=== PATIENT | male | born 1985 | race Caucasian/White ===

== ENCOUNTER 2017-11-02 08:15 | Emergency (ER) | payer OTHER ==
[2017-11-02 08:20] VITALS: BP 116/73; PULSE 93; TEMP 99.1; BMI 31.9
[2017-11-02] MEDS ORDERED: IBUPROFEN 600 MG TABLET (FP) PO ONE ×2 (08:49→08:52)
--- NOTE | 2017-11-02 08:53 | PDOC ---
History of Present Illness - General Chief Complaint: Injury Stated Complaint: INJURY Time Seen by Provider: 11/02/17 08:28 History Source: Patient Exam Limitations: No Limitations - History of Present Illness Initial Comments: 11/02/17 08:50 slipped and fell in shower, landing onto left side- Occurred: reports: yesterday Severity: reports: moderate Pain Location: reports: chest Method of Injury: Yes: direct blow Loss of Consciousness: no loss of consciousness Associated Symptoms (Fall): chest pain Past History - Travel Traveled outside of the country in the last 30 days: No Close contact w/someone who was outside of country & ill: No - Past Medical History Allergies/Adverse Reactions: Allergies Allergy/AdvReac Type Severity Reaction Status Date / Time No Known Allergies Allergy Verified 11/02/17 08:19 Home Medications: Ambulatory Orders NK [No Known Home Medication] 11/02/17 COPD: No - Suicide/Smoking/Psychosocial Hx Smoking History: Current every day smoker Number of Cigarettes Smoked Daily: 4 Information on smoking cessation initiated: No Review of Systems - Review of Systems Able to Perform ROS?: Yes Is the patient limited Sinhala proficient: Yes Constitutional: Yes: Symptoms Reported, See HPI, Loss of Appetite, Malaise. No : Fever HEENTM: Yes: See HPI. No: Symptoms Reported Respiratory: Yes: Symptoms reported, See HPI. No: Cough (some difficulty with deep inspiration), Wheezing ABD/GI: Yes: See HPI. No: Symptoms Reported, Abdominal Distended Musculoskeletal: Yes: Symptoms Reported, See HPI Integumentary: Yes: See HPI. No: Symptoms Reported, Bruising, Erythema Neurological: No: Symptoms reported All Other Systems: Reviewed and Negative *Physical Exam - Vital Signs Last Vital Signs Temp Pulse Resp BP Pulse Ox 99.1 F 93 H 20 116/73 99 11/02/17 08:17 11/02/17 08:17 11/02/17 08:17 11/02/17 08:17 11/02/17 08:17 - Physical Exam General Appearance: Yes: Nourished, Appropriately Dressed, Apparent Distress, Mild Distress, Moderate Distress HEENT: positive: DEVANG, Normal ENT Inspection, Normal Voice, TMs Normal, Pharynx Normal Neck: positive: Supple. negative: Tender Respiratory/Chest: positive: Chest Tender, Lungs Clear (pain with deep inspirtion), Normal Breath Sounds Cardiovascular: positive: Regular Rate Gastrointestinal/Abdominal: positive: Soft. negative: Tender Musculoskeletal: positive: Normal Inspection Extremity: positive: Normal Capillary Refill, Normal Inspection Integumentary: positive: Normal Color, Dry, Warm Neurologic: positive: senior office assistant II-XII NML intact, Fully Oriented, Alert, Normal Mood/ Affect, Normal Response, Motor Strength 12/02 ED Treatment Course - RADIOLOGY Radiology Studies Ordered: Category Date Time Status RIBS-LEFT SIDE [RAD] Stat Radiology 11/02/17 08:48 Ordered Progress Note - Progress Note Progress Note: Review contusion, x-ray negative for fractures or dislocations *DC/Admit/Observation/Transfer Diagnosis at time of Disposition: Contusion of rib on left side Qualifiers: Encounter type: initial encounter Qualified Code(s): S20.212A - Contusion of left front wall of thorax, initial encounter - Discharge Dispostion Disposition: HOME Condition at time of disposition: Stable Admit: No - Referrals - Patient Instructions Printed Discharge Instructions: DI for Rib Contusion Additional Instructions: Rest, ice to area on and off for 15 minutes 4-6 times a day Avoid heavy lifting or exercise until pain and swelling is resolved or until further directed Keep area highly elevated to reduce swelling Use splints/Vernon wrap as directed Followup with orthopedist in one to 2 days if not improving, if significantly improved may wait one week for followup with orthopedist May use ibuprofen 2-200 mg tablets every 6 hours as needed for pain - Post Discharge Activity Forms/Work/School Notes: Back to Work
== END 2017-11-02 10:00 | disposition home or self-care (01) ==
LOC: JERFT 08:15
DX: S20.212A Contusion of left front wall of thorax, initial encounter (principal); W18.2XXA Fall in (into) shower or empty bathtub, initial encounter; Y93.E1 Activity, personal bathing and showering; Y92.031 Bathroom in apartment as the place of occurrence of the external cause; Y99.8 Other external cause status
CPT/HCPCS: 71101-TC-FY; 99281-25

== ENCOUNTER 2021-02-11 16:40 | Emergency (ER) | payer OTHER ==
[2021-02-11 16:54] VITALS: BP 154/78; PULSE 64; TEMP 98.1; BMI 29.5
== END 2021-02-11 19:35 | disposition home or self-care (01) ==
LOC: JER 16:40
PROC: 0HQGXZZ Repair Left Hand Skin, External Approach (ICD-10-PCS; principal; 2021-02-11)
DX: S61.412A Laceration without foreign body of left hand, initial encounter (principal)
CPT/HCPCS: 99282-25